=== PATIENT | female | born 1975 | race Caucasian/White ===

== ENCOUNTER 2018-06-06 20:06 | Emergency (ER) | payer OTHER, SELFPAY ==
[2018-06-06 20:09] VITALS: BP 157/102; PULSE 84; RESP 18; TEMP 37.7; O2SAT 98
[2018-06-06 20:10] VITALS: BP 157/102; PULSE 88; RESP 18; TEMP 37.7; O2SAT 98; BMI 40.1
[2018-06-06] MEDS: MethylPREDNISolone 125 MG/2 ML Vial IV (20:34)
[2018-06-06] MEDS: DiphenhydrAMINE 50 MG/ML Syringe 25 MG IV (20:35)
--- NOTE | 2018-06-06 21:50 | ED.VISSUMM ---
- ER Visit Summary Date of Service: 06/06/18 Chief Complaint: Hives History of Present Illness: The patient is a 42 F who was walking in [facility] when she developed hives on the face torso and extremities. She states her fingertips feel swollen and tingling. This is the second episode this year and is much worse than the first episode. She does not know of any offending agents that have done this. She had another similar episode when she was in high school. She has never seen an hand cloth cutter. She did take some liquid Benadryl prior to arrival here in the department. She denies any throat swelling or significant shortness of breath. Physical Examination: Afebrile vital signs are stable Gen: Well-nourished well-developed Head: Normocephalic atraumatic Eyes: Perrl EOMI ENT: TMs clear no rhinorrhea moist mucous membranes Neck: Supple no lymphadenopathy no JVD nontender CVS: Regular rate rhythm no murmurs normal S1-S2 Respiratory: No distress clear to auscultation bilaterally chest nontender Abdomen: Soft nontender nondistended normal bowel sounds no masses Back: Nontender Extremity: Nontender no edema Skin: Patient has hives about the face some on the back torso as well as extremities. Neuro: alert orientated ?3 CN II-XII intact normal strength sensation reflexes gait cerebellar Psych: Normal affect normal mood Emergency Department Course and Treatment: Patient was given Solu-Medrol, Benadryl, Pepcid intravenously. She was observed for 2 hours and is improved. She will continue Benadryl and prednisone at home. Return if worsening or concerns. She will talk with her insurance company about seeing an hand cloth cutter. Impression: 1. Urticaria This note was generated with TDX dictation software. It may contain incorrect words, spelling, and punctuation that were not noted in review of the chart prior to signing ED Disposition - Plan for ED Patient: Disposition: Home or Assisted Living Chief Complaint: Allergic Reaction Instructions: ED Urticaria Prescriptions: Prednisone [Deltasone] 60 mg PO DAILY #15 tab Additional Instructions: Benadryl 25 mg every 8 hours for the next 2 days
--- NOTE | 2018-06-06 21:53 | ED.DCSUM_ITS ---
- ER Visit Summary Date of Service: 06/06/18 Chief Complaint: Hives History of Present Illness: The patient is a 42 F who was walking in [facility] when she developed hives on the face torso and extremities. She states her fingertips feel swollen and tingling. This is the second episode this year and is much worse than the first episode. She does not know of any offending agents that have done this. She had another similar episode when she was in high school. She has never seen an lamp decorator. She did take some liquid Benadryl prior to arrival here in the department. She denies any throat swelling or significant shortness of breath. Physical Examination: Afebrile vital signs are stable Gen: Well-nourished well-developed Head: Normocephalic atraumatic Eyes: Perrl EOMI ENT: TMs clear no rhinorrhea moist mucous membranes Neck: Supple no lymphadenopathy no JVD nontender CVS: Regular rate rhythm no murmurs normal S1-S2 Respiratory: No distress clear to auscultation bilaterally chest nontender Abdomen: Soft nontender nondistended normal bowel sounds no masses Back: Nontender Extremity: Nontender no edema Skin: Patient has hives about the face some on the back torso as well as extremities. Neuro: alert orientated ?3 CN II-XII intact normal strength sensation reflexes gait cerebellar Psych: Normal affect normal mood Emergency Department Course and Treatment: Patient was given Solu-Medrol, Benadryl, Pepcid intravenously. She was observed for 2 hours and is improved. She will continue Benadryl and prednisone at home. Return if worsening or concerns. She will talk with her insurance company about seeing an lamp decorator. Impression: 1. Urticaria This note was generated with [employer] dictation software. It may contain incorrect words, spelling, and punctuation that were not noted in review of the chart prior to signing ED Disposition - Plan for ED Patient: Disposition: Home or Assisted Living Chief Complaint: Allergic Reaction Instructions: ED Urticaria Prescriptions: Prednisone [Deltasone] 60 mg PO DAILY #15 tab Additional Instructions: Benadryl 25 mg every 8 hours for the next 2 days
[2018-06-06 22:02] VITALS: BP 138/83; PULSE 78; RESP 16; O2SAT 98
== END 2018-06-06 22:03 | disposition home or self-care (01) ==
PROVIDERS: Emergency Provider Emergency Medicine
DX: L50.9 Urticaria, unspecified (principal)
CPT/HCPCS: 96374; 96375; 99283; J7050; A4216; J3490